=== PATIENT | female | born 1945 | race Caucasian/White ===

== ENCOUNTER → 2016-12-07 | Outpatient (CLI) | payer MEDICARE ==
[~2016-12-07] MED LIST: AMLODIPINE10 MG PO; BENADRYL50 MG PO; CALCIUM + D 6001 TA1 PO; DEXILANT60 MG PO; FLAXSEED OIL1 CAP PO; FLONASE NASAL S16 GM NS; FOLIC ACID0.4 MG PO; FOSAMAX70 MG PO; LEXAPRO5 MG PO; PERCOCET 325 MG1 TA2 PO; PREMARIN VAG42.5 GM VG; THERAPEUTIC VIT1 CAP PO; VITAMIN C500 MG PO
== END ==
LOC: MC.RAD 10:00
DX: Z12.31 Encounter for screening mammogram for malignant neoplasm of breast (principal)

== ENCOUNTER → 2017-03-03 | Outpatient (CLI) | payer MEDICARE | LOC: COL.RAD 07:43 | DX: K90.0 Celiac disease (principal); K21.9 Gastro-esophageal reflux disease without esophagitis | CPT/HCPCS: A9541 ==

== ENCOUNTER 2017-03-19 06:30 | Day surgery (SDC) | payer MEDICARE ==
[~2017-03-19] VITALS: Ht 157.5 cm; Wt 55.5 kg
[~2017-03-19 06:30] MED LIST changes: -AMLODIPINE10 MG PO; +NORVASC 10MG10 MG PO
[2017-03-19] MEDS ORDERED: WELLBUTRIN XL150 MG PO (07:01)
[2017-03-19] MEDS ORDERED: LIPITOR 10MG10 MG PO (07:01)
[2017-03-19] MEDS ORDERED: LEXAPRO 10MG10 MG PO (07:01)
[2017-03-19] MEDS ORDERED: CALCIUM CARBON650 M2 PO (07:02)
[2017-03-19] MEDS ORDERED: RESTASIS0.05% OU (07:02)
[2017-03-19] MEDS ORDERED: EPICOR PO (07:04)
[2017-03-19 07:23] VITALS: BP 134/76; PULSE 74; TEMP 98
[2017-03-19 08:25] VITALS: BP 118/67; PULSE 66
[2017-03-19 08:40] VITALS: BP 109/63; PULSE 61
[2017-03-19 08:55] VITALS: BP 113/61; PULSE 63
[2017-03-19 09:10] VITALS: BP 104/68; PULSE 61
== END 2017-03-19 09:33 | disposition home or self-care (01) ==
LOC: SDCO 06:30
DX: K31.5 Obstruction of duodenum (principal); K30 Functional dyspepsia; I10 Essential (primary) hypertension; R05 Cough; F32.9 Major depressive disorder, single episode, unspecified; K59.00 Constipation, unspecified; D64.9 Anemia, unspecified; K92.0 Hematemesis
CPT/HCPCS: J2250; J2405; J3010; J7030

== ENCOUNTER → 2017-04-05 | Outpatient (CLI) | payer MEDICARE ==
[~2017-04-05] MED LIST changes: +CALCIUM CARBON650 M2 PO; +EPICOR PO; +LEXAPRO 10MG10 MG PO; +LIPITOR 10MG10 MG PO; +RESTASIS0.05% OU; +WELLBUTRIN XL150 MG PO
== END ==
LOC: COL.RAD 09:24
DX: Z01.812 Encounter for preprocedural laboratory examination (principal); N28.1 Cyst of kidney, acquired; N26.1 Atrophy of kidney (terminal); M48.54XA Collapsed vertebra, not elsewhere classified, thoracic region, initial encounter for fracture; M48.56XA Collapsed vertebra, not elsewhere classified, lumbar region, initial encounter for fracture; I70.0 Atherosclerosis of aorta; K90.0 Celiac disease
CPT/HCPCS: Q9967

== ENCOUNTER → 2018-01-25 | Outpatient (CLI) | payer MEDICARE | LOC: MC.RAD 08:52 | DX: Z12.31 Encounter for screening mammogram for malignant neoplasm of breast (principal) ==

== ENCOUNTER 2018-12-19 08:15 | Outpatient (RCR) | payer MEDICARE | END 2019-01-03 | disposition home or self-care (01) | LOC: WSST | DX: R41.3 Other amnesia (principal); F01.50 Vascular dementia, unspecified severity, without behavioral disturbance, psychotic disturbance, mood disturbance, and anxiety ==

== ENCOUNTER 2019-04-03 10:00 | Outpatient (RCR) | payer MEDICARE | END 2019-04-16 | disposition home or self-care (01) | LOC: WSST | DX: R41.3 Other amnesia (principal); F01.50 Vascular dementia, unspecified severity, without behavioral disturbance, psychotic disturbance, mood disturbance, and anxiety ==

== ENCOUNTER → 2019-04-26 | Outpatient (CLI) | payer MEDICARE | LOC: MC.RAD 11:11 | DX: Z12.31 Encounter for screening mammogram for malignant neoplasm of breast (principal) ==

== ENCOUNTER 2019-08-23 09:45 | Outpatient (RCR) | payer MEDICARE | END 2019-08-29 | disposition home or self-care (01) | LOC: WSST | DX: F01.50 Vascular dementia, unspecified severity, without behavioral disturbance, psychotic disturbance, mood disturbance, and anxiety (principal) ==

== ENCOUNTER 2020-01-15 09:00 | Outpatient (RCR) | payer MEDICARE | END 2020-01-18 | disposition home or self-care (01) | LOC: WSST | DX: M54.32 Sciatica, left side (principal); R41.3 Other amnesia; F01.50 Vascular dementia, unspecified severity, without behavioral disturbance, psychotic disturbance, mood disturbance, and anxiety ==

== ENCOUNTER 2020-04-23 10:00 | Outpatient (RCR) | payer MEDICARE | END 2020-04-28 | disposition home or self-care (01) | LOC: WSST | DX: F01.50 Vascular dementia, unspecified severity, without behavioral disturbance, psychotic disturbance, mood disturbance, and anxiety (principal) ==

== ENCOUNTER 2020-06-10 14:45 | Outpatient (RCR) | payer MEDICARE | END 2020-06-24 | disposition home or self-care (01) | LOC: WSST | DX: F01.50 Vascular dementia, unspecified severity, without behavioral disturbance, psychotic disturbance, mood disturbance, and anxiety (principal) ==

== ENCOUNTER 2020-09-17 10:00 | Outpatient (RCR) | payer MEDICARE | END 2020-09-23 | disposition home or self-care (01) | LOC: WSST | DX: R41.3 Other amnesia (principal); F01.50 Vascular dementia, unspecified severity, without behavioral disturbance, psychotic disturbance, mood disturbance, and anxiety ==

== ENCOUNTER 2020-12-24 10:00 | Outpatient (RCR) | payer MEDICARE | END 2020-12-30 | disposition home or self-care (01) | LOC: WSST | DX: R41.3 Other amnesia (principal); F01.50 Vascular dementia, unspecified severity, without behavioral disturbance, psychotic disturbance, mood disturbance, and anxiety ==

== ENCOUNTER 2021-03-25 10:00 | Outpatient (RCR) | payer MEDICARE | END 2021-04-07 | disposition home or self-care (01) | LOC: WSST | DX: R41.3 Other amnesia (principal); F01.50 Vascular dementia, unspecified severity, without behavioral disturbance, psychotic disturbance, mood disturbance, and anxiety ==

== ENCOUNTER 2021-06-03 10:00 | Outpatient (RCR) | payer MEDICARE | END 2021-06-20 | disposition home or self-care (01) | LOC: WSST | DX: R41.3 Other amnesia (principal); F01.50 Vascular dementia, unspecified severity, without behavioral disturbance, psychotic disturbance, mood disturbance, and anxiety ==

== ENCOUNTER 2021-07-15 10:00 | Outpatient (RCR) | payer MEDICARE | END 2021-07-21 | disposition home or self-care (01) | LOC: WSST | DX: R41.3 Other amnesia (principal); F01.50 Vascular dementia, unspecified severity, without behavioral disturbance, psychotic disturbance, mood disturbance, and anxiety ==

== ENCOUNTER 2021-08-12 10:00 | Outpatient (RCR) | payer MEDICARE | END 2021-08-18 | disposition home or self-care (01) | LOC: WSST | DX: R41.3 Other amnesia (principal) ==

== ENCOUNTER → 2022-02-09 | Outpatient (CLI) | payer MEDICARE | LOC: COL.RAD 08:45 | DX: M47.812 Spondylosis without myelopathy or radiculopathy, cervical region (principal); M43.12 Spondylolisthesis, cervical region; I70.0 Atherosclerosis of aorta; M16.11 Unilateral primary osteoarthritis, right hip; M17.11 Unilateral primary osteoarthritis, right knee; M25.762 Osteophyte, left knee; M25.752 Osteophyte, left hip; D47.2 Monoclonal gammopathy; M53.3 Sacrococcygeal disorders, not elsewhere classified ==